=== PATIENT | female | born 1980 | race Caucasian/White ===

== ENCOUNTER 2022-10-10 18:50 | Emergency (ER) | payer MEDICAID ==
[~2022-10-10] VITALS: Ht 162.6 cm; Wt 56.2 kg
[2022-10-10 19:15] VITALS: BP 119/60; PULSE 83; RESP 20; TEMP 97.6; O2SAT 100
[2022-10-10] MEDS ORDERED: KETOROLAC 30 MG/ML VIAL IM ONE (20:10)
[2022-10-10] MEDS ORDERED: ACET-8905 PO ×2 (21:26→22:05)
[2022-10-10] MEDS ORDERED: IBUP-2213 PO ×2 (21:26→22:05)
[2022-10-10 22:04] VITALS: BP 115/74; PULSE 85; RESP 18
[2022-10-10 22:05] VITALS: O2SAT 100
== END 2022-10-10 22:04 | disposition home or self-care (01) ==
LOC: MED 18:50
DX: S92.515A Nondisplaced fracture of proximal phalanx of left lesser toe(s), initial encounter for closed fracture (principal); Z79.899 Other long term (current) drug therapy; Z79.1 Long term (current) use of non-steroidal anti-inflammatories (NSAID); W22.8XXA Striking against or struck by other objects, initial encounter; Y92.89 Other specified places as the place of occurrence of the external cause; Y93.89 Activity, other specified; Y99.8 Other external cause status
CPT/HCPCS: 73630; 96372; 99283; J1885